=== PATIENT | female | born 1990 | race Caucasian/White ===

== ENCOUNTER 2021-09-09 07:59 | Day surgery (SDC) | payer OTHER ==
[~2021-09-09] VITALS: Ht 167.6 cm; Wt 77.5 kg
[2021-09-09 08:52] VITALS: BP 115/69; PULSE 77; TEMP 98
[2021-09-09] MEDS ORDERED: BENTYL 10MG10 MG/CAP PO (10:14)
[2021-09-09 10:17] VITALS: BP 104/67; PULSE 69; TEMP 97.8
--- NOTE | 2021-09-09 10:17 | NUR ---
Pt arrived from procedure, drowsy but talkative. Vitals obtained. Verbal report obtained from SOURAV Meier. Warm blankets provided. Pt ambulated from cart to chair with minimal difficulty. Apple juice and a warm muffin provided. Call scanlon is within reach on side table.
[2021-09-09 10:32] VITALS: BP 107/67; PULSE 70
--- NOTE | 2021-09-09 10:32 | NUR ---
Vitals obtained. Pt has finished her muffin and continues to drink her juice. and son were brought in from the waiting room. Call scanlon remains within reach. Pt denies nausea.
[2021-09-09 10:47] VITALS: BP 108/85; PULSE 74
--- NOTE | 2021-09-09 10:47 | NUR ---
Vitals obtained. Call scanlon remains within reach. Pt expressed desire to be discharged.
--- NOTE | 2021-09-09 11:02 | NUR ---
DC instructions and educational material was reviewed with the pt and her huband, who verbalized understanding and the pt signed the related paperwork. IV discontinued. Catheter tip intact. Pressure bandage applied. No redness or swelling noted. Pt denied needing assistance changing into personal clothes.
--- NOTE | 2021-09-09 11:10 | NUR ---
Pt dismissed from endo via wheelchair by SOURAV Parks and her w/ small son. Pt has her DC packet and personal belonings in hand. Pt was transferred into the care of her , who is present to drive.
== END 2021-09-09 11:10 | disposition home or self-care (01) ==
LOC: SDCO 07:59
DX: D12.2 Benign neoplasm of ascending colon (principal); K62.1 Rectal polyp; K92.1 Melena; R19.7 Diarrhea, unspecified; K64.0 First degree hemorrhoids
CPT/HCPCS: J2704; J7030